=== PATIENT | male | born 1955 | race Caucasian/White ===

== ENCOUNTER 2017-06-23 12:44 | Emergency (ER) | payer MEDICARE, MEDICAID ==
[~2017-06-23] VITALS: Ht 177.8 cm; Wt 69.0 kg
--- NOTE | 2017-06-23 13:05 | NUR ---
PT [facility] TO ER BED 06. PER REPORT, PT IS C/O SI W/ PLAN TO OD ON HEROIN. PT ALSO C/O L WRIST AND RLE PAIN S/P FALL 10 DAYS AGO. PLACED ON MONITOR. STABLE VITALS. AWAITING MD MATA.
--- NOTE | 2017-06-23 13:07 | NUR ---
MIKE EDGAR AT BEDSIDE FOR EVAL.
--- NOTE | 2017-06-23 13:10 | NUR ---
BIKE TECHNICIAN AT BEDSIDE FOR BLOOD DRAW.
[2017-06-23 13:25] LABS: BASOPHILS % (AUTO) 0.4 % (0.0-2.0); EOSINOPHILS # (AUTO) 0.6 /CMM (0.0-0.7); EOSINOPHILS % (AUTO) 5.1 % (0.0-6.0); HEMATOCRIT 35 % (39-51); HEMOGLOBIN 11.5 g/dL (13.5-17.5); LYMPHOCYTES # (AUTO) 0.9 /CMM (0.8-4.8); LYMPHOCYTES % (AUTO) 7.8 % (20.0-44.0); MEAN CORPUSCULAR HEMOGLOBIN 28 PG (26.0-33.0); MEAN CORPUSCULAR HGB CONC 33 g/dl (31.0-36.0); MEAN CORPUSCULAR VOLUME 86 fL (80-96); MONOCYTES # (AUTO) 0.9 /CMM (0.1-1.30); MONOCYTES % (AUTO) 7.5 % (2.0-12.0); NEUTROPHILS # (AUTO) 9.6 /CMM (1.8-8.9); NEUTROPHILS % (AUTO) 79.2 % (43.0-81.0); PLATELET COUNT (AUTO) 171 /CMM (150-450); RDW COEFFICIENT OF VARIATION 14.5 (11.5-15.0); RED BLOOD CELL COUNT(AUTO) 4.06 MIL/uL (4.5-6.0); WHITE BLOOD COUNT (AUTO) 12.1 K/uL (4.3-11.0)
[2017-06-23 13:34] LABS: CALCIUM, SERUM 9.3 mg/dL (8.5-10.1); CARBON DIOXIDE 27 mmol/L (21-32); CHLORIDE 101 mmol/L (98-107); CREATININE 0.9 mg/dL (0.6-1.3); GLUCOSE 299 mg/dL (74-106); POTASSIUM 4.3 mmol/L (3.5-5.1); SODIUM SERUM 135 mmol/L (136-145); UREA NITROGEN, BLOOD 20 mg/dL (7-18)
[2017-06-23 13:40] LABS: ALANINE AMINOTRANSFERASE 30 U/L (12-78); ALBUMIN 3.1 g/dL (3.4-5.0); ALCOHOL, BLOOD < 3 mg/dL (0-0); ALKALINE PHOSPHATASE 78 U/L (46-116); ASPARTATE AMINOTRANSFERASE 11 U/L (15-37); BILIRUBIN,DIRECT 0.1 mg/dL (0.0-0.2); BILIRUBIN,TOTAL 0.4 mg/dL (0.2-1.0); SALICYLATE 1.1 mg/dL (2.8-20.0)
[2017-06-23 13:41] LABS: ACETAMINOPHEN < 10 ug/ml (10-30)
[2017-06-23] MEDS ORDERED: MULT-659 PO (13:43)
[2017-06-23] MEDS ORDERED: CLOP75TA2 PO (13:43)
[2017-06-23] MEDS ORDERED: VANC1VIA2 IV (13:43)
[2017-06-23] MEDS ORDERED: ATOR40TA PO (13:43)
[2017-06-23] MEDS ORDERED: INSU100I19 SQ (13:43)
[2017-06-23] MEDS ORDERED: CLON2TAB PO (13:43)
[2017-06-23] MEDS ORDERED: GABA-534 PO (13:43)
[2017-06-23] MEDS ORDERED: MAGN400O6 PO (13:43)
[2017-06-23] MEDS ORDERED: HYDR100T27 PO (13:43)
[2017-06-23] MEDS ORDERED: AMLO5TAB2 PO (13:43)
[2017-06-23] MEDS ORDERED: INSU100V11 SQ ×2 (13:43)
[2017-06-23] MEDS ORDERED: TAMS-12 PO (13:43)
[2017-06-23] MEDS ORDERED: ISOS10TA2 PO (13:43)
[2017-06-23] MEDS ORDERED: MIRT7.5T10 PO (13:43)
[2017-06-23] MEDS ORDERED: ASCO500T9 PO (13:43)
[2017-06-23] MEDS ORDERED: TRAM50TA92 PO (13:43)
[2017-06-23] MEDS ORDERED: LOSA50TA21 PO (13:43)
[2017-06-23] MEDS ORDERED: ZINC220C8 PO (13:43)
[2017-06-23] MEDS ORDERED: HYDROCODONE/APAP 10/325MG 1 EA TABLET PO ONE (14:00)
[2017-06-23] MEDS ORDERED: HYDROCODONE/APAP 10/325MG 1 EA TABLET ONE (14:01)
--- NOTE | 2017-06-23 14:01 | NUR ---
CALLED PRIYANKA FOR EVAL
[2017-06-23 14:05] LABS: APPEARANCE,URINE Clear (CLEAR); BILIRUBIN,URINE Negative (NEGATIVE); BLOOD, URINE Negative Ery/uL (NEGATIVE); COLOR,URINE Yellow (YELLOW); KETONES,URINE Negative (NEGATIVE); LEUKOCYTE ESTERASE ,URINE Negative (NEGATIVE); NITRITE, URINE Negative (NEGATIVE); PROTEIN,URINE Negative (NEGATIVE); UGLUCOSE 500 MG/DL mg/dL (NEGATIVE); UROBILINOGEN,URINE 0.2 EU/dL (0.2)
[2017-06-23] MEDS ORDERED: OLANZAPINE 10 MG VIAL IM ONE ×2 (14:25→14:30)
--- NOTE | 2017-06-23 14:29 | NUR ---
PT IS AGITATED. YELLING, DEMANDING TO BE GIVEN OXY. MIKE EDGAR MADE AWARE. MEDICATED ORDERED. SEE EMAR.
--- NOTE | 2017-06-23 15:30 | NUR ---
PT IS SLEEPING, VERBALLY AROUSABLE. ON MONITOR. STABLE VITALS. WILL CONT TO MONITOR.
--- NOTE | 2017-06-23 16:47 | NUR ---
CALLED [facility] FOR BLS RIG BACK TO [facility] - TRIP# [id number] - [phone] [id number]
--- NOTE | 2017-06-23 17:47 | NUR ---
PT PROVIDED W/ SANDWICH AND JUICE.
--- NOTE | 2017-06-23 18:08 | NUR ---
Patient discharged to home VIA AMBULANCE in stable condition. Written and verbal after care instructions given. Patient AND EMS verbalized understanding of instruction.
[2017-06-23 18:10] VITALS: BP 150/74
== END 2017-06-23 18:11 | disposition home or self-care (01) ==
LOC: ER 12:49
DX: F32.9 Major depressive disorder, single episode, unspecified (principal); R45.851 Suicidal ideations; Z88.1 Allergy status to other antibiotic agents; Z88.8 Allergy status to other drugs, medicaments and biological substances; Z79.4 Long term (current) use of insulin
CPT/HCPCS: 36415; 80048; 80076; 80305; 80329; 81001; 85025; 96372; 99284; A4606; G0480 ×2; J3490; 81000-TC; Z7610